=== PATIENT | female | born 1940 | race African-American/Black ===

== ENCOUNTER → 2016-04-27 | Outpatient (CLI) | payer OTHER, MEDICAID ==
[~2016-04-27] MED LIST: AMI200 PO; AMIO400T5 PO; ASPI-1063 PO; DILT120C89 PO; DILT240C91 PO; RIVA15TA PO
[2016-04-27 14:07] LABS: ALANINE AMINOTRANSFERASE 20 U/L (12-78); ALBUMIN 3.4 g/dL (3.4-4.8); ASPARTATE AMINOTRANSFERASE 13 U/L (10-37); CALCIUM 8.9 mg/dL (8.4-11.0); CHLORIDE 104 mmol/L (98-107); CREATININE 0.77 mg/dL (0.55-1.30); GLUCOSE 78 mg/dL (70-99); SODIUM SERUM 139 mmol/L (136-145); THYROID STIMULATING HORMONE 1.34 uIu/mL (0.34-4.82); TOTAL BILIRUBIN 0.3 mg/dL (0.0-1.0); TOTAL PROTEIN, SERUM 7.6 g/dL (6.4-8.3); UREA NITROGEN, BLOOD 17 mg/dL (8-21)
[2016-04-27 14:16] LABS: ANION GAP 9 (5-15)
== END | disposition home or self-care (01) ==
LOC: SLB 12:16
PROVIDERS: ATTEND Internal Medicine Cardiovascular Disease
DX: I10 Essential (primary) hypertension (principal)
CPT/HCPCS: 36415; 80053; 84443-TC

== ENCOUNTER 2016-08-10 19:55 | Emergency (ER) | payer OTHER, MEDICAID ==
[~2016-08-10] VITALS: Ht 170.2 cm; Wt 77.1 kg
[2016-08-10 19:55] VITALS: BP_SYST 113
[~2016-08-10 19:55] MED LIST changes: -AMIO400T5 PO; -DILT120C89 PO
[2016-08-10] MEDS ORDERED: SULFAMETHOXAZOLE/TRIMETHOPR DS 1 TABLET PO ONE (23:00)
[2016-08-10 23:10] VITALS: BP_SYST 117
== END 2016-08-10 23:10 | disposition home or self-care (01) ==
LOC: SED 19:55
DX: L03.114 Cellulitis of left upper limb (principal); H66.91 Otitis media, unspecified, right ear; I10 Essential (primary) hypertension; I48.91 Unspecified atrial fibrillation; Z85.830 Personal history of malignant neoplasm of bone
CPT/HCPCS: 99283

== ENCOUNTER 2016-08-15 12:04 | Emergency (ER) | payer OTHER, MEDICAID ==
[~2016-08-15] VITALS: Ht 170.2 cm; Wt 77.1 kg
[2016-08-15 12:05] VITALS: BP_SYST 113
[2016-08-15] MEDS ORDERED: ACETAMINOPHEN 500 MG TABLET PO ONE (13:15)
[2016-08-15 13:40] VITALS: BP_SYST 138
== END 2016-08-15 13:40 | disposition home or self-care (01) ==
LOC: SED 13:37
DX: H92.01 Otalgia, right ear (principal); R51 Headache; I48.91 Unspecified atrial fibrillation; I10 Essential (primary) hypertension; Z85.830 Personal history of malignant neoplasm of bone
CPT/HCPCS: 99283

== ENCOUNTER 2016-10-21 21:38 | Emergency (ER) | payer OTHER, MEDICAID ==
[~2016-10-21] VITALS: Ht 170.2 cm; Wt 77.1 kg
[2016-10-21 22:14] VITALS: BP_SYST 146
[2016-10-21] MEDS ORDERED: DILT120C89 PO (22:23)
[2016-10-21] MEDS ORDERED: OLAN5TAB26 PO (22:24)
--- NOTE | 2016-10-21 22:49 | NUR ---
Patient to ER bed 02 to gown for evaluation. Side rails up. Report recieved from AYO Arredondo
--- NOTE | 2016-10-21 23:01 | NUR ---
Patient reports that at home her blood pressure systolic has been in the 170s today. Patient reports that she took Diltiazem 110mg today and blood pressure was still elevated. 2 hours prior to arrival in ER patient reports that she took another Diltiazem and Olanzapine. Patient denies any dizziness. No other complaints/injuries per patient or as noted. Will continue to monitor.
--- NOTE | 2016-10-22 00:01 | NUR ---
ER Dr. Castellanos at bedside examining patient.
[2016-10-22 00:29] LABS: BILIRUBIN,URINE NEGATIVE (NEGATIVE); BLOOD, URINE 1+ (NEGATIVE); CLARITY/URINE CLEAR (CLEAR); COLOR,URINE YELLOW (YELLOW); GLUCOSE,URINE NEGATIVE (NEGATIVE); KETONES,URINE NEGATIVE (NEGATIVE); LEUKOCYTE ESTERASE ,URINE TRACE (NEGATIVE); NITRITE, URINE NEGATIVE (NEGATIVE); PH,URINE 5.5 (5.0-8.0); PROTEIN URINE NEGATIVE (NEGATIVE); UROBILINOGEN,URINE 0.2 (0.2-1.0)
[2016-10-22 00:34] LABS: BACTERIA,URINE MANY /HPF (None Seen); MUCUS,URINE None Seen /LPF (None Seen); RBC,URINE 0-3 /HPF (0-3)
[2016-10-22 00:52] VITALS: BP_SYST 125
--- NOTE | 2016-10-22 00:52 | NUR ---
Patient given written and verbal discharge instructions and verbalizes understanding. ER MD discussed with patient the results and treatment provided. Patient in stable condition. ID arm band removed. No Rx given. Patient educated on pain management and to follow up with PMD in 3-5 days. Pain Scale 0/10 Opportunity for questions provided and answered.
== END 2016-10-22 00:52 | disposition home or self-care (01) ==
LOC: SED 21:38
DX: I10 Essential (primary) hypertension (principal); F41.9 Anxiety disorder, unspecified; I48.91 Unspecified atrial fibrillation; Z89.512 Acquired absence of left leg below knee; Z96.651 Presence of right artificial knee joint; Z85.830 Personal history of malignant neoplasm of bone; Z79.899 Other long term (current) drug therapy
CPT/HCPCS: 81000-TC; 87086; 99284

== ENCOUNTER 2017-01-28 15:38 | Emergency (ER) | payer OTHER, MEDICAID ==
[~2017-01-28] VITALS: Ht 170.2 cm; Wt 86.2 kg
[~2017-01-28 15:38] MED LIST changes: -ASPI-1063 PO; +DILT120C89 PO; -DILT240C91 PO; +OLAN5TAB26 PO; -RIVA15TA PO
[2017-01-28 15:50] VITALS: BP_SYST 139
[2017-01-28 16:34] LABS: EOSINOPHILS # (AUTO) 0.1 K/uL (0.0-0.4); EOSINOPHILS % (AUTO) 1.5 % (0.0-4.0); HEMATOCRIT 43.6 % (36-48); HEMOGLOBIN 13.9 g/dL (12.0-16.0); LYMPHOCYTES # (AUTO) 1.8 K/uL (1.0-5.5); LYMPHOCYTES % (AUTO) 30.5 % (20.5-51.5); MEAN CORPUSCULAR HEMOGLOBIN 28 pg (27-31); MEAN CORPUSCULAR HGB CONC 32 % (32-36); MEAN CORPUSCULAR VOLUME 89 fL (79.0-98.0); MONOCYTES # (AUTO) 0.5 K/uL (0.0-1.0); MONOCYTES % (AUTO) 8.5 % (1.7-9.3); PLATELET COUNT (AUTO) 227 K/uL (130-430); RED BLOOD CELL COUNT(AUTO) 4.93 MIL/uL (4.2-6.2); RED CELL DISTRIBUTION WIDTH 13.5 % (9.0-15.0); WHITE BLOOD COUNT (AUTO) 5.9 K/uL (4.8-10.8)
[2017-01-28 16:39] LABS: NEUTROPHILS % (AUTO) 59.5 % (40.0-70.0)
[2017-01-28 16:40] LABS: NEUTROPHILS # (AUTO) 3.5 K/uL (1.8-7.7)
[2017-01-28 17:10] LABS: INR 1.1 (0.8-1.2)
[2017-01-28 17:18] LABS: ALANINE AMINOTRANSFERASE 20 U/L (12-78); ALBUMIN 3.4 g/dL (3.4-4.8); ANION GAP 5 (5-15); ASPARTATE AMINOTRANSFERASE 15 U/L (10-37); CALCIUM 8.9 mg/dL (8.4-11.0); CHLORIDE 105 mmol/L (98-107); CREATININE 0.82 mg/dL (0.55-1.30); GLUCOSE 125 mg/dL (70-99); POTASSIUM 3.3 mmol/L (3.5-5.1); SODIUM SERUM 139 mmol/L (136-145); TOTAL BILIRUBIN 0.4 mg/dL (0.0-1.0)
[2017-01-28 17:25] LABS: UREA NITROGEN, BLOOD 15 mg/dL (8-21)
[2017-01-28 18:03] LABS: BILIRUBIN,URINE NEGATIVE (NEGATIVE); BLOOD, URINE 1+ (NEGATIVE); CLARITY/URINE HAZY (CLEAR); COLOR,URINE YELLOW (YELLOW); GLUCOSE,URINE NEGATIVE (NEGATIVE); KETONES,URINE TRACE (NEGATIVE); LEUKOCYTE ESTERASE ,URINE NEGATIVE (NEGATIVE); NITRITE, URINE NEGATIVE (NEGATIVE); PROTEIN URINE NEGATIVE (NEGATIVE); UROBILINOGEN,URINE 0.2 (0.2-1.0)
[2017-01-28 18:34] LABS: BACTERIA,URINE FEW /HPF (None Seen)
[2017-01-28] MEDS ORDERED: POTASSIUM CHLORIDE 20 MEQ TAB.PRT.SR PO ONE (18:45)
[2017-01-28 18:58] VITALS: BP_SYST 130
== END 2017-01-28 18:57 | disposition home or self-care (01) ==
LOC: SED 15:38
DX: F41.9 Anxiety disorder, unspecified (principal); E87.6 Hypokalemia; I10 Essential (primary) hypertension; I48.91 Unspecified atrial fibrillation; Z85.830 Personal history of malignant neoplasm of bone; Z89.612 Acquired absence of left leg above knee
CPT/HCPCS: 36415; 71010; 80053; 81000-TC; 82550-TC; 83880; 84484; 85025; 85610-TC; 87086; 93005; 99285

== ENCOUNTER 2018-08-12 09:05 | Outpatient (CLI) | payer OTHER, MEDICARE, MEDICAID ==
[~2018-08-12 09:05] MED LIST changes: +CHOL500037 PO; +MELA3TAB PO
== END 2018-08-12 20:48 | disposition home or self-care (01) ==
LOC: SUS 09:05
PROVIDERS: ATTEND Internal Medicine Cardiovascular Disease
DX: N28.1 Cyst of kidney, acquired (principal); I70.8 Atherosclerosis of other arteries
CPT/HCPCS: 76700-TC; 93880

== ENCOUNTER 2018-08-12 10:13 | Emergency (ER) | payer OTHER, MEDICARE, MEDICAID ==
[~2018-08-12] VITALS: Ht 167.6 cm; Wt 86.2 kg
[2018-08-12 10:13] VITALS: BP_SYST 154
[2018-08-12] MEDS ORDERED: ASPIRIN 81 MG TAB.CHEW PO ONE (10:45)
[2018-08-12 11:19] LABS: BASOPHILS # (AUTO) 0.1 K/uL (0.0-0.2); BASOPHILS % (AUTO) 0.9 % (0.0-2.0); EOSINOPHILS % (AUTO) 0.9 % (0.0-4.0); HEMATOCRIT 43.9 % (36-48); HEMOGLOBIN 14.4 g/dL (12.0-16.0); LYMPHOCYTES # (AUTO) 1.6 K/uL (1.0-5.5); LYMPHOCYTES % (AUTO) 29.8 % (20.5-51.5); MEAN CORPUSCULAR HEMOGLOBIN 29 pg (27-31); MEAN CORPUSCULAR HGB CONC 33 % (32-36); MEAN CORPUSCULAR VOLUME 89 fL (79.0-98.0); MONOCYTES # (AUTO) 0.5 K/uL (0.0-1.0); NEUTROPHILS # (AUTO) 3.1 K/uL (1.8-7.7); NEUTROPHILS % (AUTO) 58.4 % (40.0-70.0); PLATELET COUNT (AUTO) 208 K/uL (130-430); RED BLOOD CELL COUNT(AUTO) 4.93 MIL/uL (4.2-6.2); RED CELL DISTRIBUTION WIDTH 14.4 % (9.0-15.0); WHITE BLOOD COUNT (AUTO) 5.3 K/uL (4.8-10.8)
[2018-08-12 11:34] LABS: ANION GAP 8 (5-15); CALCIUM 9.2 mg/dL (8.4-11.0); CHLORIDE 105 mmol/L (98-107); CREATININE 0.78 mg/dL (0.55-1.30); GLUCOSE 78 mg/dL (70-99); POTASSIUM 3.9 mmol/L (3.5-5.1); SODIUM SERUM 141 mmol/L (136-145); UREA NITROGEN, BLOOD 13 mg/dL (8-21)
[2018-08-12 11:46] LABS: ALANINE AMINOTRANSFERASE 20 U/L (12-78); ALBUMIN 3.1 g/dL (3.4-4.8); ASPARTATE AMINOTRANSFERASE 16 U/L (10-37); LIPASE 65 U/L (73-393); TOTAL BILIRUBIN 0.5 mg/dL (0.0-1.0)
[2018-08-12 14:15] VITALS: BP_SYST 146
== END 2018-08-12 14:15 | disposition home or self-care (01) ==
LOC: SED 10:13
DX: R07.89 Other chest pain (principal); R42 Dizziness and giddiness; I48.91 Unspecified atrial fibrillation; I10 Essential (primary) hypertension; Z85.830 Personal history of malignant neoplasm of bone; Z79.899 Other long term (current) drug therapy; Z96.651 Presence of right artificial knee joint
CPT/HCPCS: 36415; 71045; 80053; 83690-TC; 83880; 84484; 85025; 99284

== ENCOUNTER 2020-05-22 07:16 | Emergency (ER) | payer OTHER, MEDICARE ==
[~2020-05-22] VITALS: Ht 170.2 cm; Wt 83.0 kg
[~2020-05-22 07:16] MED LIST changes: -AMI200 PO; +AMIO200T66 PO; -MELA3TAB PO; +MELA3TAB41 PO
[2020-05-22 07:29] VITALS: BP_SYST 109
--- NOTE | 2020-05-22 07:30 | NUR ---
Patient to ER bed 07 to gown for evaluation. Side rails up.
--- NOTE | 2020-05-22 07:34 | NUR ---
Pt came in s/p fall this AM at 1 am this morning. Stated she fell off her bed and quickly got up. Denies any LOC. Took motrin. PMH of Altagracia MYERS. Pending MD yeung.
--- NOTE | 2020-05-22 07:37 | NUR ---
Dr Olguin evaluating patient at bedside
[2020-05-22] MEDS ORDERED: traMADol HCL HCL 50 MG TABLET (ULTRAM) PO ONE (07:45)
--- NOTE | 2020-05-22 08:27 | NUR ---
XR at bedside
--- NOTE | 2020-05-22 09:31 | NUR ---
Pt currently resting in bed, in no apparent distress. Using a bedpan to urinate. Pt aox4, speaks in clear and complete sentences, respirations unlabored. Pending MD test for compartment syndrome on right leg.
--- NOTE | 2020-05-22 11:04 | NUR ---
Son at bedside, MD Olguin at bedside
[2020-05-22] MEDS ORDERED: TRAM50TA PO ×3 (11:17→12:05)
--- NOTE | 2020-05-22 11:30 | NUR ---
Pt currently resting in bed, denies any pain. Son at bedside. Pt aox4, speaks in clear and complete sentences, respirations unlabored, chest equal rise and fall. In stable condition. Pending MD dispo.
[2020-05-22 12:15] VITALS: BP_SYST 128
--- NOTE | 2020-05-22 12:15 | NUR ---
Patient given written and verbal discharge instructions and verbalizes understanding. ER MD Olguin discussed with patient the results and treatment provided. Patient in stable condition. ID arm band removed. Rx of tramadol given. Patient educated on pain management and to follow up with PMD. Pain Scale 0/10. Opportunity for questions provided and answered. Medication side effect fact sheet provided.
== END 2020-05-22 12:15 | disposition home or self-care (01) ==
LOC: SED 07:16
DX: S80.11XA Contusion of right lower leg, initial encounter (principal); I10 Essential (primary) hypertension; I48.91 Unspecified atrial fibrillation; Z79.899 Other long term (current) drug therapy; W06.XXXA Fall from bed, initial encounter; Y93.89 Activity, other specified; Y92.89 Other specified places as the place of occurrence of the external cause; Y99.8 Other external cause status
CPT/HCPCS: 73590-TC; 93005; 99285

== ENCOUNTER 2020-06-10 10:12 | Outpatient (CLI) | payer OTHER, MEDICARE ==
[~2020-06-10 10:12] MED LIST changes: +TRAM50TA PO
== END 2020-06-10 20:29 | disposition home or self-care (01) ==
LOC: SUS 10:12
DX: M79.89 Other specified soft tissue disorders (principal)
CPT/HCPCS: 93971

== ENCOUNTER 2022-12-14 16:13 | Emergency (ER) | payer OTHER, MEDICARE ==
[~2022-12-14] VITALS: Ht 160 cm; Wt 56.7 kg
[~2022-12-14 16:13] MED LIST changes: -OLAN5TAB26 PO; +OLAN5TAB71 PO
[2022-12-14 16:20] VITALS: BP_SYST 133; PULSE 115; RESP 18; TEMP 98.3; O2SAT 98
[2022-12-14] MEDS ORDERED: dilTIAZem HCL IVP 5 MG/ML VIAL IVP ONE ×2 (17:00→18:45)
[2022-12-14] MEDS ORDERED: DILTIAZEM HCL 60 MG TABLET PO ONE ×2 (17:00→18:45)
[2022-12-14 17:21] LABS: BASOPHILS % (AUTO) 0.6 % (0.0-2.0); EOSINOPHILS % (AUTO) 0.7 % (0.0-4.0); HEMOGLOBIN 14.8 g/dL (12.0-16.0); LYMPHOCYTES # (AUTO) 1.1 K/uL (1.0-5.5); LYMPHOCYTES % (AUTO) 19.4 % (20.5-51.5); MEAN CORPUSCULAR HEMOGLOBIN 29 pg (27-31); MEAN CORPUSCULAR HGB CONC 33 % (32-36); MEAN CORPUSCULAR VOLUME 88 fL (79.0-98.0); MONOCYTES # (AUTO) 0.6 K/uL (0.0-1.0); MONOCYTES % (AUTO) 10.2 % (1.7-9.3); NEUTROPHILS # (AUTO) 3.9 K/uL (1.8-7.7); NEUTROPHILS % (AUTO) 69.1 % (40.0-70.0); PLATELET COUNT (AUTO) 187 K/uL (130-430); RED BLOOD CELL COUNT(AUTO) 5.14 MIL/uL (4.2-6.2); RED CELL DISTRIBUTION WIDTH 14.4 % (9.0-15.0); WHITE BLOOD COUNT (AUTO) 5.6 K/uL (4.8-10.8)
[2022-12-14 17:40] LABS: PROTHROMBIN TIME 10.5 SECS (9.5-12.5)
[2022-12-14 17:47] LABS: ALANINE AMINOTRANSFERASE 18 U/L (12-78); ALBUMIN 3.3 g/dL (3.4-4.8); ANION GAP 10 (5-15); ASPARTATE AMINOTRANSFERASE 17 U/L (10-37); CALCIUM 8.9 mg/dL (8.4-11.0); CARBON DIOXIDE 25 mmol/L (23-29); CHLORIDE 105 mmol/L (98-107); CREATININE 0.59 mg/dL (0.55-1.30); GLUCOSE 114 mg/dL (74-106); POTASSIUM 3.3 mmol/L (3.5-5.1); SODIUM SERUM 140 mmol/L (136-145); TOTAL BILIRUBIN 0.2 mg/dL (0.0-1.0); TOTAL PROTEIN, SERUM 7.1 g/dL (6.4-8.3); UREA NITROGEN, BLOOD 12 mg/dL (8-21)
[2022-12-14 19:57] VITALS: BP_SYST 123; PULSE 87; RESP 15; TEMP 97.6; O2SAT 96
== END 2022-12-14 19:57 | disposition home or self-care (01) ==
LOC: SED 16:13
DX: I48.91 Unspecified atrial fibrillation (principal); R00.2 Palpitations; I10 Essential (primary) hypertension; Z85.830 Personal history of malignant neoplasm of bone; Z79.899 Other long term (current) drug therapy
CPT/HCPCS: 99285; 96374; 71045; 80053; 83880; 85025; 85610; 85730; 84484; 36415; 93005; 96376; J3490